=== PATIENT | male | born 1965 | race Caucasian/White ===

== ENCOUNTER 2019-03-11 10:12 | Emergency (ER) | payer SELFPAY ==
--- NOTE | 2019-03-11 10:30 | EDM.PDOC ---
ED HPI GENERAL MEDICAL PROBLEM - General Chief Complaint: Lower Extremity Injury/Pain Stated Complaint: SWELLING L FOOT, DIFFICULTY WALKING Time Seen by Provider: 03/11/19 10:28 Source of Information: Reports: Patient, Old Records, RN, RN Notes Reviewed History Limitations: Reports: No Limitations - History of Present Illness INITIAL COMMENTS - FREE TEXT/NARRATIVE: Pt presents to ER from home by POV with c/o onset of severe left 1st toe/foot pain with redness and mild swelling last evening. Denies injury, fever, chills, blister or skin ulcer to the area. Pt denies Hx of gout. Pt admits to Hx of HTN and high cholesterol only. He denies any other medical problems. Review of past medical records however reveals Hx of CKD Stage 3, DM Type 2 N.I.D., and psoriasis. Onset: Gradual Onset Date: 03/10/19 Duration: Constant, Getting Worse Location: Reports: Lower Extremity, Left Quality: Reports: Ache, Throbbing Severity: Severe Improves with: Reports: None Worsens with: Reports: Other (Touch), Movement Associated Symptoms: Reports: No Other Symptoms Left Foot Pain Score (Numeric/FACES): 6 - Related Data Allergies Allergy/AdvReac Type Severity Reaction Status Date / Time seasonal allergies Allergy Cannot Uncoded 03/11/19 10:18 Remember Home Meds: Home Meds Atenolol 100 mg PO BEDTIME 03/11/19 [History] Chlorthalidone 25 mg PO DAILY 03/11/19 [History] atorvaSTATin [Lipitor] 10 mg PO BEDTIME 03/11/19 [History] Past Medical History HEENT History: Reports: Impaired Vision Cardiovascular History: Reports: High Cholesterol, Hypertension Respiratory History: Reports: None Gastrointestinal History: Reports: None Genitourinary History: Reports: Chronic Renal Insuffiency, Renal Disease Musculoskeletal History: Reports: Other (See Below) Other Musculoskeletal History: shoulder injury Neurological History: Reports: None Psychiatric History: Reports: None Endocrine/Metabolic History: Reports: Diabetes, Type II, Obesity/BMI 30+ Hematologic History: Reports: None Immunologic History: Reports: None Oncologic (Cancer) History: Reports: None Dermatologic History: Reports: Psoriasis - Infectious Disease History Infectious Disease History: Reports: None - Past Surgical History Head Surgeries/Procedures: Reports: None Social & Family History - Family History Family Medical History: Noncontributory - Tobacco Use Smoking Status *Q: Heavy Tobacco Smoker Tobacco Use Within Last Twelve Months: Cigarettes Years of Tobacco use: 30 Packs/Tins Daily: 1 - Caffeine Use Caffeine Use: Reports: Coffee - Alcohol Use Days Per Week of Alcohol Use: 3 Number of Drinks Per Day: 7 Total Drinks Per Week: 21 Date of Last Drink: 03/09/19 Time of Last Drink: 21:00 - Recreational Drug Use Recreational Drug Use: No - Living Situation & Occupation Living situation: Reports: Review of Systems - Review of Systems Review Of Systems: ROS reveals no pertinent complaints other than HPI. ED EXAM, GENERAL - Physical Exam Exam: See Below Exam Limited By: No Limitations General Appearance: Alert, WD/WN, No Apparent Distress, Other (Smells overwhelming strong of tobacco smoke.) Eye Exam: Bilateral Eye: Normal Inspection Throat/Mouth: Normal Voice, No Airway Compromise Head: Atraumatic, Normocephalic Neck: Normal Inspection Respiratory/Chest: No Respiratory Distress, Lungs Clear Cardiovascular: Normal Peripheral Pulses, Regular Rate, Rhythm, No Edema Extremities: No Pedal Edema, Joint Swelling (Left 1st MTPJ with erythema and acute tenderness to even light touch). No: Eugenia's Sign Neurological: Alert, Oriented, No Motor/Sensory Deficits Psychiatric: Normal Mood Course - Vital Signs Last Recorded V/S: Last Vital Signs Temp 97.2 F 03/11/19 10:19 Pulse 79 03/11/19 10:19 Resp 16 03/11/19 10:19 BP 137/89 03/11/19 10:19 Pulse Ox 99 03/11/19 10:19 - Orders/Labs/Meds Orders: Active Orders 24 hr Category Date Time Status C-REACTIVE PROTEIN [CHEM] Stat Lab 03/11/19 10:38 Received DME for Discharge [COMM] Routine Oth 03/11/19 11:20 Ordered Labs: Laboratory Tests 03/11/19 03/11/19 Range/Units 10:38 10:38 WBC 10.2 H (5.0-10.0) 10^3/uL RBC 5.19 (4.6-6.2) 10^6/uL Hgb 16.3 (14.0-18.0) g/dL Hct 46.7 (40.0-54.0) % MCV 90.0 (80-100) fL MCH 31.4 (27.0-34.0) pg MCHC 34.9 (33.0-35.0) g/dL Plt Count 252 (150-450) 10^3/uL Neut % (Auto) 66.6 (42.2-75.2) % Lymph % (Auto) 26.3 (20.5-50.1) % [place] % (Auto) 5.6 (2-8) % Eos % (Auto) 1.3 (1.0-3.0) % Baso % (Auto) 0.2 (0.0-1.0) % Sodium 136 (135-145) mmol/L Potassium 4.0 (3.6-5.0) mmol/L Chloride 101 (101-111) mmol/L Carbon Dioxide 23.0 (21.0-31.0) mmol/L Anion Gap 16.0 BUN 20 H (7-18) mg/dL Creatinine 1.4 H (0.6-1.3) mg/dL Est Cr Clr Drug Dosing 68.96 mL/min Estimated GFR (MDRD) 53 BUN/Creatinine Ratio 14.28 Glucose 159 H (74-105) mg/dL Uric Acid 9.0 H (2.6-7.2) mg/dL Calcium 9.0 (8.4-10.2) mg/dl Total Bilirubin 0.8 (0.2-1.0) mg/dL AST 27 (10-42) IU/L ALT 37 (10-60) IU/L Alkaline Phosphatase 48 (42-121) IU/L Total Protein 7.5 (6.7-8.2) g/dl Albumin 4.1 (3.2-5.5) g/dl Globulin 3.4 Albumin/Globulin Ratio 1.21 Meds: Medications Discontinued Medications Generic Name Dose Route Start Last Admin Trade Name Freq PRN Reason Stop Dose Admin Colchicine 1.2 mg 03/11/19 11:15 03/11/19 11:23 Colcrys PO 03/11/19 11:16 1.2 mg ONETIME ONE Administration Ondansetron HCl 4 mg 03/11/19 11:16 03/11/19 11:22 Zofran Odt PO 03/11/19 11:17 4 mg ONETIME ONE Administration Prednisone 60 mg 03/11/19 11:16 03/11/19 11:22 Prednisone PO 03/11/19 11:17 60 mg ONETIME ONE Administration Departure - Departure Time of Disposition: 11:21 Disposition: Home, Self-Care 01 Condition: Good Clinical Impression: Acute gout Qualifiers: Gout site: toe Gout etiology: unspecified cause Laterality: left Qualified Code (s): M10.9 - Gout, unspecified - Discharge Information *PRESCRIPTION DRUG MONITORING PROGRAM REVIEWED*: No *COPY OF PRESCRIPTION DRUG MONITORING REPORT IN PATIENT HEATHER: No Instructions: Low-Purine Eating Plan, Gout, [id number] Forms: ED Department Discharge Additional Instructions: Rx: Prednisone 20mg Rx: Hydrocodone APAP 5mg/325mg *Do not drive while under the influence of this medication. Low purine diet, quit smoking, drink plenty of water, and soak painful foot in warm/hot water or wrap with a hot wet towel to reduce gout pain. Follow up in clinic with Dr. Goodman as scheduled. - My Orders Last 24 Hours: My Active Orders 03/11/19 10:38 C-REACTIVE PROTEIN [CHEM] Stat 03/11/19 11:20 DME for Discharge [COMM] Routine - Assessment/Plan Last 24 Hours: My Active Orders 03/11/19 10:38 C-REACTIVE PROTEIN [CHEM] Stat 03/11/19 11:20 DME for Discharge [COMM] Routine
[2019-03-11] MEDS ORDERED: Colchicine 0.6 MG Tab PO ONE (11:15)
[2019-03-11] MEDS ORDERED: Ondansetron 4 MG Tab.DIS PO ONE (11:16)
[2019-03-11] MEDS ORDERED: predniSONE 20 MG Tab PO ONE (11:16)
== END 2019-03-11 11:31 | disposition home or self-care (01) ==
LOC: DL.ED 10:12
DX: M10.9 Gout, unspecified (principal); E78.00 Pure hypercholesterolemia, unspecified; I12.9 Hypertensive chronic kidney disease with stage 1 through stage 4 chronic kidney disease, or unspecified chronic kidney disease; E11.22 Type 2 diabetes mellitus with diabetic chronic kidney disease; N18.3 Chronic kidney disease, stage 3 (moderate); F17.210 Nicotine dependence, cigarettes, uncomplicated; Z91.09 Other allergy status, other than to drugs and biological substances; Z79.899 Other long term (current) drug therapy
CPT/HCPCS: 36415; 80053; 84550; 85025; 86140; 99283; A9270

== ENCOUNTER 2020-12-20 12:36 | Emergency (ER) | payer SELFPAY | END 2020-12-20 15:05 | disposition left against medical advice (07) | LOC: DL.ED 12:36 | DX: Z53.21 Procedure and treatment not carried out due to patient leaving prior to being seen by health care provider (principal) ==

== ENCOUNTER 2020-12-20 19:38 | Emergency (ER) | payer SELFPAY ==
[2020-12-20] MEDS ORDERED: Iopamidol 612 MG/ML 100 ML Bottle IVPUSH ONE (22:27)
[2020-12-20] MEDS ORDERED: Iopamidol 612 MG/ML 50 ML SDV IVPUSH ONE (22:45)
--- NOTE | 2020-12-21 | CT ---
PROCEDURE INFORMATION: Exam: CT Chest With Contrast; Diagnostic Exam date and time: 12/20/2020 11:16 PM Age: 55 years old Clinical indication: Abdominal pain; Localized; Left-sided; Additional info: Fell 2 nights prior garage TECHNIQUE: Imaging protocol: Diagnostic computed tomography of the chest with contrast. Radiation optimization: All CT scans at this facility use at least one of these dose optimization techniques: automated exposure control; mA and/or kV adjustment per patient size (includes targeted exams where dose is matched to clinical indication); or iterative reconstruction. Contrast material: ISOVUE 300; Contrast volume: 125 ml; Contrast route: INTRAVENOUS (IV); COMPARISON: 1. CT Abdomen Pelvis w wo Cont 04/11/2017 10:[address] RENAL STONE STUDY 02/29/2012 9:57 AM FINDINGS: Thyroid: The thyroid gland is normal. Lungs: Mild atelectasis in the bilateral lung bases. No acute interstitial or airspace disease. The airways are patent. Pleural spaces: Unremarkable. No pneumothorax. No pleural effusion. Heart: Heart is of normal size and morphology. There is mild atherosclerotic calcification of the coronary arteries. No pericardial thickening or effusion. Pulmonary arteries: Normal in course and caliber. Aorta: Aneurysmal dilation of the mid ascending thoracic aorta measuring 4.3 cm in greatest diameter. The aorta demonstrates mild atherosclerotic calcification. No acute aortic pathology. Lymph nodes: No adenopathy. Bones/joints: Old/healed right mid clavicular fracture. Question of an old/healed fracture to the right scapula. Multilevel old/healed right rib fractures are appreciated. Linear fracture to the lateral segment of the left 9th rib. Moderate multilevel degenerative changes of the spine, as manifested by multilevel anterior osteophytes and multilevel decrease in intervertebral disc space. Soft tissues: Unremarkable. IMPRESSION: 1. Linear fracture to the lateral segment of the left 9th rib. 2. No other acute thoracic pathology is appreciated. 3. Incidental findings as detailed above. PROCEDURE INFORMATION: Exam: CT Abdomen And Pelvis With Contrast Exam date and time: 12/20/2020 11:16 PM Age: 55 years old Clinical indication: Abdominal pain; Localized; Left-sided; Additional info: Fell 2 nights prior garage TECHNIQUE: Imaging protocol: Computed tomography of the abdomen and pelvis with contrast. Radiation optimization: All CT scans at this facility use at least one of these dose optimization techniques: automated exposure control; mA and/or kV adjustment per patient size (includes targeted exams where dose is matched to clinical indication); or iterative reconstruction. Contrast material: ISOVUE 300; Contrast volume: 125 ml; Contrast route: INTRAVENOUS (IV); COMPARISON: 1. CT Abdomen Pelvis w wo Cont 04/11/2017 10:[address] RENAL STONE STUDY 02/29/2012 9:57 AM FINDINGS: Liver: There is enlargement of the liver, measuring 18.3 cm. There is a diffuse decrease in hepatic parenchymal density, consistent with fatty infiltration. The liver is otherwise unremarkable. Gallbladder and bile ducts: Concern for a 6 mm wall nodularity at the gallbladder fundus. Consider correlation with ultrasound in a nonemergent setting. The gallbladder is otherwise unremarkable. There is no evidence of biliary ductal dilation. Pancreas: Normal. No ductal dilation. Spleen: Normal. No splenomegaly. Adrenal glands: Normal. No mass. Kidneys and ureters: 1 cm simple left renal cyst. No follow-up is recommended. The kidneys are otherwise unremarkable. The ureters are normal. Stomach and bowel: No bowel wall thickening, obstruction, or other acute pathology. Diffuse colonic diverticulosis is present. There is moderately excessive colonic stool content. Appendix: A normal appendix is identified. Intraperitoneal space: Unremarkable. No free air. No significant fluid collection. Vasculature: Borderline aneurysmal dilation of the infrarenal abdominal aorta measuring 2.9 cm in greatest diameter. The vasculature demonstrates diffuse moderate atherosclerotic calcification. No acute vascular pathology is appreciated. Lymph nodes: Unremarkable. No enlarged lymph nodes. Urinary bladder: The bladder is decompressed. Reproductive: The prostate demonstrates mild nonspecific enlargement. The seminal vesicles are normal. Bones/joints: Old/healed fracture of the left inferior pubic ramus. Old/healed fracture of the left superior pubic ramus. No acute skeletal pathology. Moderate multilevel degenerative changes of the spine, as manifested by multilevel anterior osteophytes and multilevel decrease in intervertebral disc space. Soft tissues: There is a nonobstructing right inguinal hernia. There is a nonobstructing left inguinal hernia. IMPRESSION: 1. Negative for acute abdominopelvic pathology. 2. Incidental findings as detailed above. COMMENTS: Consistent with the [employer]'s Incidental Findings Committee white paper (J Am Louise Radiol 2018): Any incidental renal lesion less than 1 cm or classified as too small to characterize, or any incidental cystic renal lesion characterized as simple-appearing, is likely benign. No follow-up imaging is recommended for these lesions per consensus recommendations based on imaging criteria.
--- NOTE | 2020-12-21 00:10 | EDM.PDOC ---
ED HPI GENERAL MEDICAL PROBLEM - General Chief Complaint: Abdominal Pain Stated Complaint: STOMACH PAIN Time Seen by Provider: 12/20/20 20:30 Source of Information: Reports: Patient, RN History Limitations: Reports: No Limitations - History of Present Illness INITIAL COMMENTS - FREE TEXT/NARRATIVE: ED with c/o Left abdominal and lateral left rib manoz. Reports 2 nights prior turn ing to shut off light in garage and fell and objects on floor. no loss of consciousness. Pain ribs increase with movement or deep breathing. No BM x 2 days. General discomfort left lower abdomen. No difficulty voiding. No weakness. No back pain. - Related Data Allergies Allergy/AdvReac Type Severity Reaction Status Date / Time seasonal allergies Allergy Cannot Uncoded 12/20/20 20:10 Remember Home Meds: Home Meds Chlorthalidone 25 mg PO DAILY 03/11/19 [History] atenoloL [Atenolol] 100 mg PO BEDTIME 03/11/19 [History] atorvaSTATin [Lipitor] 10 mg PO BEDTIME 03/11/19 [History] Past Medical History HEENT History: Reports: Impaired Vision Cardiovascular History: Reports: High Cholesterol, Hypertension Respiratory History: Reports: None Gastrointestinal History: Reports: Diverticulosis Genitourinary History: Reports: Chronic Renal Insuffiency, Renal Disease Musculoskeletal History: Reports: Other (See Below) Other Musculoskeletal History: shoulder injury Neurological History: Reports: None Psychiatric History: Reports: None Endocrine/Metabolic History: Reports: Diabetes, Type II, Obesity/BMI 30+ Hematologic History: Reports: None Immunologic History: Reports: None Oncologic (Cancer) History: Reports: None Dermatologic History: Reports: Psoriasis - Infectious Disease History Infectious Disease History: Reports: None - Past Surgical History Head Surgeries/Procedures: Reports: None Social & Family History - Family History Family Medical History: No Pertinent Family History - Tobacco Use Tobacco Use Status *Q: Current Every Day Tobacco User Years of Tobacco use: 30 Packs/Tins Daily: 0.9 Second Hand Smoke Exposure: Yes - Caffeine Use Caffeine Use: Reports: Coffee - Recreational Drug Use Recreational Drug Use: Yes Drug Use in Last 12 Months: Yes Recreational Drug Type: Reports: Marijuana/Hashish Recreational Drug Use Frequency: Rarely - Living Situation & Occupation Living situation: Reports: ED ROS GENERAL - Review of Systems Review Of Systems: Comprehensive ROS is negative, except as noted in HPI. ED EXAM, GI/ABD - Physical Exam Exam: See Below Exam Limited By: No Limitations General Appearance: Alert, Mild Distress Eyes: Bilateral: EOMI Ears: Normal External Exam Throat/Mouth: Normal Inspection Head: Atraumatic, Normocephalic Neck: Normal Inspection Respiratory/Chest: No Respiratory Distress, Lungs Clear. No: Chest Non-Tender (tender left lower alateral) Cardiovascular: Normal Peripheral Pulses, Regular Rate, Rhythm GI/Abdominal Exam: Normal Bowel Sounds, Soft, Other. No: Abnormal Bowel Sounds Back Exam: Normal Inspection Extremities: Normal Inspection Neurological: Alert, Oriented, CN II-XII Intact, Normal Cognition Psychiatric: Normal Affect, Flat Affect Skin Exam: Warm, Dry, Intact, Ecchymosis (left hip lateral groin reddish purple bruise) Course - Vital Signs Last Recorded V/S: Last Vital Signs Temp 98.2 F 12/20/20 19:59 Pulse 65 12/20/20 19:59 Resp 18 12/20/20 19:59 BP 162/99 H 12/20/20 19:59 Pulse Ox 94 L 12/20/20 19:59 - Orders/Labs/Meds Labs: Laboratory Tests 12/20/20 12/20/20 Range/Units 22:20 22:20 WBC 8.4 (5.0-10.0) 10^3/uL RBC 4.65 (4.6-6.2) 10^6/uL Hgb 14.2 D (14.0-18.0) g/dL Hct 42.6 (40.0-54.0) % MCV 91.6 (80-100) fL MCH 30.5 (27.0-34.0) pg MCHC 33.3 (33.0-35.0) g/dL Plt Count 219 (150-450) 10^3/uL Neut % (Auto) 58.4 (42.2-75.2) % Lymph % (Auto) 31.6 (20.5-50.1) % [place] % (Auto) 7.5 (2-8) % Eos % (Auto) 2.0 (1.0-3.0) % Baso % (Auto) 0.5 (0.0-1.0) % Sodium 139 (136-145) mmol/L Potassium 4.0 (3.5-5.1) mmol/L Chloride 103 (98-107) mmol/L Carbon Dioxide 29 (21-32) mmol/L Anion Gap 11.0 (7-13) mEq/L BUN 18 (7-18) mg/dL Creatinine 1.30 (0.70-1.30) mg/dL Est Cr Clr Drug Dosing 72.56 mL/min Estimated GFR (MDRD) 57 BUN/Creatinine Ratio 13.8 (No establ ref range) Glucose 90 (70-99) mg/dL Calcium 8.8 (8.5-10.1) mg/dL Total Bilirubin 0.9 (0.2-1.0) mg/dL AST 12 L (15-37) U/L ALT 28 (16-63) U/L Alkaline Phosphatase 56 (46-116) U/L Total Protein 6.8 (6.4-8.2) g/dL Albumin 3.4 (3.4-5.0) g/dL Globulin 3.4 Albumin/Globulin Ratio 1.0 Amylase 33 (25-115) U/L Lipase 71 L (73-393) U/L Meds: Medications Discontinued Medications Generic Name Dose Route Start Last Admin Trade Name Freq PRN Reason Stop Dose Admin Iopamidol 100 ml 12/20/20 22:27 12/20/20 23:35 Iopamidol 612 Mg/Ml 100 Ml Bottle IVPUSH 12/20/20 22:28 100 ml ONETIME ONE Administration Iopamidol 50 ml 12/20/20 22:45 12/20/20 23:35 Iopamidol 612 Mg/Ml 50 Ml Sdv IVPUSH 12/20/20 22:46 25 ml ONETIME ONE Administration - Re-Assessments/Exams Free Text/Narrative Re-Assessment/Exam: Results of lab and CT reviewed with patient including incidental findings on CT of aneurysmal type dilation of inrarenal aorta and need to follow with PCP. Departure - Departure Time of Disposition: 00:06 Disposition: Home, Self-Care 01 Condition: Good Clinical Impression: Constipation, Left rib fracture - Discharge Information *PRESCRIPTION DRUG MONITORING PROGRAM REVIEWED*: No *COPY OF PRESCRIPTION DRUG MONITORING REPORT IN PATIENT HEATHER: No Forms: ED Department Discharge Additional Instructions: alternate tyleol and ibuprofen every 4 hours as needed for discomfort splint ribs with movement, sneezing or cough increase fluids fruit fiber in diet miralax one capful in 8 ounce liquid follow up primary care, regarding ct report borderline aneurysmal dilation of infrarenal abdominal aorta Sepsis Event Note (ED) - Evaluation Sepsis Screening Result: No Definite Risk - Focused Exam Vital Signs: Vital Signs Temp Pulse Resp BP Pulse Ox 12/20/20 19:59 98.2 F 65 18 162/99 H 94 L
== END 2020-12-21 00:26 | disposition home or self-care (01) ==
LOC: DL.ED 19:38
DX: S22.32XA Fracture of one rib, left side, initial encounter for closed fracture (principal); S70.02XA Contusion of left hip, initial encounter; K59.00 Constipation, unspecified; E11.22 Type 2 diabetes mellitus with diabetic chronic kidney disease; E66.9 Obesity, unspecified; E78.00 Pure hypercholesterolemia, unspecified; I12.9 Hypertensive chronic kidney disease with stage 1 through stage 4 chronic kidney disease, or unspecified chronic kidney disease; N18.9 Chronic kidney disease, unspecified; Z79.899 Other long term (current) drug therapy; Z68.30 Body mass index [BMI] 30.0-30.9, adult; Z91.048 Other nonmedicinal substance allergy status; Z72.0 Tobacco use; W18.39XA Other fall on same level, initial encounter
CPT/HCPCS: 36415; 71260; 74177; 80053; 82150; 83690; 85025; 99283; 99284; Q9967

== ENCOUNTER 2024-12-13 06:34 | Emergency (ER) | payer MEDICARE, OTHER ==
[2024-12-13] MEDS: Dexamethasone 4 MG/ML SDV IM ONE (07:00)
== END 2024-12-13 07:11 | disposition home or self-care (01) ==
LOC: DL.ED 06:34
DX: M10.9 Gout, unspecified (principal); E78.00 Pure hypercholesterolemia, unspecified; I10 Essential (primary) hypertension; E11.9 Type 2 diabetes mellitus without complications; Z91.09 Other allergy status, other than to drugs and biological substances; Z79.899 Other long term (current) drug therapy
CPT/HCPCS: 96372; 99283; 99284; J1100